=== PATIENT | female | born 1935 | race Caucasian/White ===

== ENCOUNTER 2019-12-07 10:34 | Emergency (ER) | payer MEDICARE, OTHER ==
[~2019-12-07] VITALS: Ht 152.4 cm; Wt 56.8 kg
[2019-12-07] MEDS ORDERED: LISINOPRIL2.5 MG PO (10:41)
[2019-12-07 11:02] LABS: ABSOLUTE BASOPHILS 0.1 thou/uL (0.0-0.2); ABSOLUTE EOSINOPHILS 0.1 thou/uL (0.0-0.7); ABSOLUTE LYMPHOCYTES 1.2 thou/uL (0.8-5.3); ABSOLUTE MONOCYTES 0.4 thou/uL (0.0-1.2); ABSOLUTE NEUTROPHILS 5.4 thou/uL (1.6-8.1); BASOPHILS 0.7 %; EOSINOPHILS 0.8 %; HEMATOCRIT 36.8 % (37.0-47.0); HEMOGLOBIN 12.4 gm/dL (12.0-15.0); LYMPHOCYTES 17.1 %; MCH 29.7 pg (26.0-34.0); MCHC 33.8 g/dL (28.0-37.0); MONOCYTES 6.2 %; MPV 7.3 fl. (7.2-11.1); NUCLEATED RBCS 0 /100WBC; PLATELET COUNT* 236 thou/uL (150-400); POLYS 75.2 %; RBC 4.18 mil/uL (4.20-5.00); RDW-CV 14.8 % (10.5-14.5); WBC 7.2 thou/uL (4.0-11.0)
[2019-12-07 11:10] LABS: CALCIUM 8.8 mg/dL (8.5-10.1); POTASSIUM 3.7 mmol/L (3.5-5.1)
[2019-12-07 11:11] LABS: APTT 24.7 Seconds (25.0-31.3); PROTIME 10.8 Seconds (9.20-11.50)
[2019-12-07 11:24] LABS: ALBUMIN 3.8 g/dL (3.4-5.0); CK-MB MASS 0.8 ng/mL (<0.5-3.6); TOTAL BILIRUBIN 0.7 mg/dL (<0.1-1.0); TOTAL PROTEIN 7.4 g/dL (6.4-8.2)
[2019-12-07] MEDS ORDERED: PREDNISONE 20 M20 M1 PO (12:00)
[2019-12-07] MEDS ORDERED: ACYCLOVIR 400400 MG PO (12:00)
[2019-12-07 12:15] VITALS: BP 209/94
--- NOTE | 2019-12-07 15:30 | EKG ---
[place] [address] ELECTROCARDIOGRAM REPORT Name: ELADIO RAZO Room: [facility]#: [id number] Admission: 12/07/19 Attend Phys: Discharge: 12/07/19 Date of : 39 Date of Service: 12/07/19 1049 Report #: [id number] THIS REPORT FOR: //name// [facility] ED Test Date: 2019-12-07 Test Time: 10:49:36 Pat Name: ELADIO RAZO Department: Room: Gender: [employer] Recruiter: [facility] [place] 1935 Requested By: Alan Paige Order Number: [id number] MD: uLiz Mayberry Measurements Intervals [place] Rate: 81 P: 44 HI: 178 QRS: 8 QRSD: 80 T: 50 QT: 382 QTc: 444 Interpretive Statements Sinus rhythm No previous ECG available for comparison Electronically Signed On 12-07-2019 15:30:43 CDT by Luiz Mayberry [email or web address] <ELECTRONICALLY SIGNED> By: Luiz Mayberry MD, [facility] 12/07/19 1530 1049 1049 Luiz Mayberry MD, FACC /EPI
== END 2019-12-07 12:17 | disposition home or self-care (01) ==
LOC: M.ERS 10:34
PROVIDERS: Family Medicine
DX: G51.0 Bell's palsy (principal); I10 Essential (primary) hypertension; Z90.710 Acquired absence of both cervix and uterus; Z90.49 Acquired absence of other specified parts of digestive tract; Z79.899 Other long term (current) drug therapy

== ENCOUNTER 2020-06-05 11:30 | Emergency (ER) | payer MEDICARE, OTHER ==
[~2020-06-05] VITALS: Ht 149.9 cm; Wt 56.7 kg
[~2020-06-05 11:30] MED LIST: ACYCLOVIR 400400 MG PO; LISINOPRIL2.5 MG PO; PREDNISONE 20 M20 M1 PO
[2020-06-05] MEDS ORDERED: METFORMIN HCL500 M3 PO (11:38)
[2020-06-05] MEDS ORDERED: IBUPROFEN 600600 M1 PO (13:23)
[2020-06-05] MEDS ORDERED: KEFLEX500 M1 PO (13:32)
[2020-06-05 13:37] VITALS: BP 175/75
== END 2020-06-05 13:38 | disposition home or self-care (01) ==
LOC: M.ERS 11:30
DX: S50.12XA Contusion of left forearm, initial encounter (principal); R60.9 Edema, unspecified; W01.0XXA Fall on same level from slipping, tripping and stumbling without subsequent striking against object, initial encounter; Y93.89 Activity, other specified; Y92.89 Other specified places as the place of occurrence of the external cause; Y99.8 Other external cause status; I10 Essential (primary) hypertension; Z90.710 Acquired absence of both cervix and uterus; Z90.49 Acquired absence of other specified parts of digestive tract